=== PATIENT | male | born 1955 | race Caucasian/White ===

== ENCOUNTER 2018-10-06 05:54 | Day surgery (SDC) | payer OTHER ==
[~2018-10-06 05:54] MED LIST: Dextrose 5%-0.45% NaCl 1,000 ML IV SCH; Sodium Chloride 0.9% 10 ML Syringe FLUSH PRN
[2018-10-06] MEDS ORDERED: fentaNYL 100 MCG/2 ML SDV IV ONE ×3 (05:55→07:03)
[2018-10-06] MEDS ORDERED: Midazolam 1 MG/ML 2 ML SDV IV ONE ×7 (05:55→07:21)
[2018-10-06] MEDS ORDERED: fentaNYL 100 MCG/2 ML SDV ONE (06:16)
[2018-10-06] MEDS ORDERED: Midazolam 1 MG/ML 2 ML SDV ONE (06:16)
--- NOTE | 2018-10-06 08:12 | OR ---
DATE: 10/06/2018 PROCEDURE: Total colonoscopy and snare polypectomy. INSTRUMENT USED: CF-H180 AL Olympus video colonoscope. PREMEDICATIONS: Fentanyl 100 mcg intravenous, Versed 4 mg intravenous. Nasal O2 cannula. The procedure was done under pulse oximetry, BP recording, and pvc monitor. INDICATION: Screening colonoscopic examination is done for detection of any polypoid lesions and removal, endoscopic hemostasis therapy if needed. DESCRIPTION OF PROCEDURE: Initial rectal exam showed BPH. Rigid anoscopy showed small internal hemorrhoids without bleeding from them. The colonoscope was passed with ease. Numerous scattered diverticula were noted in the distal left colon along with deformity. In the proximal sigmoid colon, more than 1-cm sized pedunculated polyp was noted. Photographs were taken, snare polypectomy was done, the tissue was retrieved and sent for histopathology. The scope was passed with ease up to the ileocecal area. Photographs were taken of the normal-appearing cecum, identified by landmarks of appendiceal orifice and double-bulged ileocecal folds. No bleeding was noted from any of the visualized areas at the commencement of the examination. There was some amount of fecal material that had to be aspirated, [place] scale of 2. No stricture. No vascular ectasia. No large isolated ulcerations seen. No evidence of diffuse inflammatory bowel disease in the form of friability, contact bleeding, or ulcerations. Probing the proximal sides of folds and flexures, using adequate distention and clearing up the stool material, withdrawal of the scope was made, cecum to rectum time over 6 minutes. No bleeding was noted from any of the visualized areas at the completion of examination. IMPRESSION: 1. Internal hemorrhoids. 2. Diverticulosis. 3. Sigmoid colonic polyp. The patient tolerated the procedure well. [facility] /[id number]
== END 2018-10-06 09:35 | disposition home or self-care (01) ==
LOC: DL.ENDO 05:54
PROVIDERS: ATTEND Internal Medicine Gastroenterology
DX: Z12.11 Encounter for screening for malignant neoplasm of colon (principal); D12.5 Benign neoplasm of sigmoid colon; K64.8 Other hemorrhoids; K57.30 Diverticulosis of large intestine without perforation or abscess without bleeding; I10 Essential (primary) hypertension; E66.09 Other obesity due to excess calories; F17.210 Nicotine dependence, cigarettes, uncomplicated; H91.90 Unspecified hearing loss, unspecified ear; E78.5 Hyperlipidemia, unspecified
CPT/HCPCS: 45385; J2250; J3010; J7042